=== PATIENT | male | born 1970 | race African-American/Black ===

== ENCOUNTER 2019-10-26 09:54 | Emergency (ER) | payer BC, MEDICAID ==
[~2019-10-26] VITALS: Ht 180.3 cm; Wt 83.0 kg
[2019-10-26 10:34] LABS: BASOPHILS % 0.7 % (0.0-2.0); EOSINOPHILS % 1.4 % (0.0-5.0); HEMATOCRIT. 36.7 % (42.0-52.0); HEMOGLOBIN. 12.1 g/dL (14.0-18.0); LYMPHOCYTES % 32.2 % (20.0-50.0); MEAN CORPUSCULAR HEMOGLOBIN 26.6 pg (28.0-32.0); MEAN CORPUSCULAR VOLUME 80.8 fL (80.0-94.0); MEAN PLATELET VOLUME 7.4 fl (7.4-10.4); MONOCYTES % 8.9 % (2.0-8.0); NEUTROPHILS % 56.8 % (40.0-76.0); PLATELET 244 x1000/uL (130-400); RED BLOOD CELL COUNT 4.54 mill/uL (4.7-6.1); RED CELL DISTRIBUTION WIDTH 14.2 % (11.6-14.6)
[2019-10-26 10:44] LABS: CHLORIDE 106 mEq/L (98-107)
[2019-10-26] MEDS ORDERED: MORPHINE SULFATE 4 MG/ML CPJ (NOT FOR IM USE) IV ONE ×2 (10:45→13:15)
[2019-10-26] MEDS ORDERED: KETOROLAC 30MG/ML VIAL IV ONE (10:45)
[2019-10-26 15:51] VITALS: BP 122/81
== END 2019-10-26 15:56 | disposition home or self-care (01) ==
LOC: ER 09:54
DX: R07.89 Other chest pain (principal); M25.512 Pain in left shoulder; D64.9 Anemia, unspecified
CPT/HCPCS: 36415; 71045; 73030; 80053; 83880; 84484; 85025; 93005; 96374; 96375; 99285; J1885; J2270